=== PATIENT | female | born 1990 | race Asian ===

== ENCOUNTER 2023-09-10 01:34 | Emergency (ER) | payer BC, MEDICAID ==
[~2023-09-10] VITALS: Ht 149.9 cm; Wt 72.6 kg
[2023-09-10 01:47] VITALS: BP_SYST 120; PULSE 83; RESP 18; TEMP 98.2; O2SAT 98
[2023-09-10 02:31] LABS: BILIRUBIN,URINE 1+ (NEGATIVE); BLOOD, URINE 1+ (NEGATIVE); CLARITY/URINE SL CLOUDY (CLEAR); COLOR,URINE YELLOW (YELLOW); GLUCOSE,URINE 1+ (NEGATIVE); KETONES,URINE NEGATIVE (NEGATIVE); LEUKOCYTE ESTERASE ,URINE NEGATIVE (NEGATIVE); NITRITE, URINE NEGATIVE (NEGATIVE); PROTEIN URINE 1+ (NEGATIVE); UROBILINOGEN,URINE 0.2 (0.2-1.0)
[2023-09-10 03:59] LABS: BACTERIA,URINE None Seen /HPF (None Seen); WBC,URINE 0-3 /HPF (0-3)
== END 2023-09-10 04:35 | disposition left against medical advice (07) ==
LOC: SED 01:34
DX: R35.89 Other polyuria (principal); R81 Glycosuria
CPT/HCPCS: 81000; 81001; 81015; 87086; 99283